=== PATIENT | female | born 1995 | race Caucasian/White ===

== ENCOUNTER 2020-06-07 16:44 | Emergency (ER) | payer OTHER ==
[2020-06-07] MEDS ORDERED: NORMAL SALINE 1000 ML 1,000 ML IV ONE (17:10)
--- NOTE | 2020-06-07 17:12 | ER Document Report ---
ED Medical Screen (RME) - General Chief Complaint: Flank Pain Stated Complaint: POSSIBLE LEFT SIDE PAIN Time Seen by Provider: 06/07/20 17:01 - HPI Notes: 06/07/20 17:10 24-year-old female 14 weeks presents emergency room with complaints of left flank pain, dysuria and kidney pain that started 6 days ago. She states she went to the ER at [facility], she was given Macrobid but decided not to take it because her mother told her it was not safe in . Patient reports her pain is becoming more progressive. She states she does have a history of pyelonephritis, denies any history of nephrolithiasis. Denies any vaginal bleeding. Her [employer] [place]. Denies any fevers or chills. Reports pain is 3 out of 5. I have greeted and performed a rapid initial assessment of this patient. A comprehensive ED assessment and evaluation of the patient, analysis of test results and completion of the medical decision making process will be conducted by additional ED providers. PHYSICAL EXAMINATION: GENERAL: Well-appearing, well-nourished and in no acute distress. CV: s1, s2 regular LUNGS: No respiratory distress abd: suprapubic tendenress on palpation. L cva tenderness on palpation. Musculoskeletal: Normal range of motion NEUROLOGICAL: Normal speech, normal gait. SKIN: Warm, Dry, normal turgor, no rashes or lesions noted. The patient was evaluated during a global COVID-19 pandemic and that diagnosis was suspected/considered upon their initial presentation. Their evaluation, treatment and testing was consistent with current guidelines for patients who present with complaints or symptoms and may be related to COVID-19. 06/07/20 17:11 - Related Data Allergies/Adverse Reactions: No Known Allergies Allergy (Verified 06/07/20 16:53) Physical Exam - Vital signs Vitals: Temp Pulse Resp BP Pulse Ox 98.3 F 103 H 20 117/66 97 06/06/20 16:47 06/06/20 16:47 06/06/20 16:47 06/06/20 16:47 06/06/20 16:47 Course - Vital Signs Vital signs: Temp Pulse Resp BP Pulse Ox 98.3 F 103 H 20 117/66 97 06/06/20 16:47 06/06/20 16:47 06/06/20 16:47 06/06/20 16:47 06/06/20 16:47
--- NOTE | 2020-06-07 18:07 | RADIOLOGY REPORT (SQ) ---
EXAM DESCRIPTION: U/S RETROPERITON (RENAL/AORTA) IMAGES COMPLETED DATE/TIME: 06/07/2020 5:57 pm REASON FOR STUDY: L flank pain x 6 days COMPARISON: None. TECHNIQUE: Dynamic and static grayscale images acquired of the kidneys and bladder and recorded on P ACS. Additional selected color Doppler and spectral images recorded. LIMITATIONS: None. FINDINGS: RIGHT KIDNEY: The right kidney measures 12.0 x 5.9 x 4.4 cm, normal size. Normal echogen icity. No solid or suspicious masses. No hydronephrosis. No calcifications. LEFT KIDNEY: The left kidney measures 10.7 x 5.4 x 4.7 cm, normal size. Normal echogenicity. No ariela d or suspicious masses. No hydronephrosis. No calcifications. BLADDER: The urinary bladder is decompressed. The patient voided prior to the examination. OTHER FINDINGS: A single living intrauterine . heart rate 147 beats per minute. IMPRESSION: 1. NORMAL RENAL ULTRASOUND. 2. The patient voided prior to the examination. 3. Single living intrauterine . TECHNICAL DOCUMENTATION: JOB ID: [id number] [employer]- All Rights Reserved Reading location - IP/workstation name: [email or web address]
[2020-06-07 18:12] LABS: ABSOLUTE LYMPHOCYTES (AUTO) 1.7 10^3/uL (0.5-4.7); ABSOLUTE MONOCYTES (AUTO) 0.7 10^3/uL (0.1-1.4); ABSOLUTE NEUT (AUTO) 6.5 10^3/uL (1.7-8.2); BASOPHILS % (AUTO) 0.2 % (0-2); EOSINOPHILS % (AUTO) 0.3 % (0-6); HEMATOCRIT 37.7 % (36.0-47.0); HEMOGLOBIN 12.9 g/dL (12.0-15.5); LYMPHOCYTES % (AUTO) 19.3 % (13-45); MEAN CORPUSCULAR HEMOGLOBIN 29.4 pg (27.0-33.4); MEAN CORPUSCULAR HGB CONC 34.3 g/dL (32.0-36.0); MEAN CORPUSCULAR VOLUME 86 fl (80-97); MONOCYTES % (AUTO) 7.3 % (3-13); PLATELET COUNT 403 10^3/uL (150-450); RED CELL DISTRIBUTION WIDTH 12.8 % (11.5-14.0); SEGMENTED NEUTROPHILS % (AUTO) 72.9 % (42-78); TOTAL CELLS COUNTED % (AUTO) 100 %
[2020-06-07 18:20] LABS: APPEARANCE,URINE SLIGHTLY-CLOUDY; BILIRUBIN,URINE NEGATIVE (NEGATIVE); CALCIUM OXALATE CRYSTALS,URINE MODERATE /HPF; COLOR,URINE YELLOW; GLUCOSE, URINE NEGATIVE (NEGATIVE); KETONES,URINE NEGATIVE (NEGATIVE); LEUKOCYTE ESTERASE,URINE NEGATIVE (NEGATIVE); NITRITE,URINE NEGATIVE (NEGATIVE); PROTEIN,URINE NEGATIVE (NEGATIVE); URINE SPECIFIC GRAVITY 1.031
[2020-06-07 18:27] LABS: ALBUMIN 4.1 g/dL (3.5-5.0); ALKALINE PHOSPHATASE 59 U/L (38-126); ANION GAP 7 (5-19); ASPARTATE AMINO TRANSFERASE 23 U/L (14-36); BILIRUBIN,DIRECT 0.2 mg/dL (0.0-0.4); BILIRUBIN,TOTAL 0.5 mg/dL (0.2-1.3); BLOOD UREA NITROGEN 5 mg/dL (7-20); CALCIUM 10.1 mg/dL (8.4-10.2); CARBON DIOXIDE 25 mmol/L (22-30); CHLORIDE 103 mmol/L (98-107); GLUCOSE 78 mg/dL (75-110); POTASSIUM 4.4 mmol/L (3.6-5.0); TOTAL PROTEIN 7.4 g/dL (6.3-8.2)
[2020-06-07] MEDS ORDERED: ONDANSETRON ODT 4 MG TAB (6 TAB/ER DISP) PO PRN (20:13)
--- NOTE | 2020-06-07 20:14 | ER Document Report ---
Entered by ZHOU MARCIAL SCRIBE 06/07/201944 Acting as scribe for:TATI TAYLOR DO ED GI/ - General Chief Complaint: Flank Pain Stated Complaint: POSSIBLE LEFT SIDE PAIN Time Seen by Provider: 06/07/20 17:01 Mode of Arrival: Ambulatory Information source: Patient Notes: This 24-year-old female patient presents to the emergency department today with complaints of left flank pain. Patient is approximately 14 weeks and was seen at [facility] the other day for a similar complaint. She states she was started on Macrobid for a possible UTI but she looked it up and it was "not recommended to take during " so she stopped taking it. She denies any nausea or vomiting. She reports that her left flank pain was relieved last night with a heating pad. - Related Data Allergies/Adverse Reactions: No Known Allergies Allergy (Verified 06/07/20 16:53) Home Medications: prenatals Past Medical History - General Information source: Patient - Social History Smoking Status: Former Smoker Cigarette use (# per day): No Frequency of alcohol use: None Drug Abuse: None Lives with: Family Family History: Reviewed & Not Pertinent Patient has homicidal ideation: No - Medical History Medical History: Negative Surgical Hx: Negative Review of Systems - Review of Systems Constitutional: No symptoms reported EENT: No symptoms reported Cardiovascular: No symptoms reported Respiratory: No symptoms reported Gastrointestinal: denies: Nausea, Vomiting Genitourinary: See HPI, Flank pain - left Female Genitourinary: See HPI, Musculoskeletal: No symptoms reported Skin: No symptoms reported Hematologic/Lymphatic: No symptoms reported Neurological/Psychological: No symptoms reported -: Yes All other systems reviewed and negative Physical Exam - Vital signs Vitals: Temp Pulse Resp BP Pulse Ox 98.3 F 103 H 20 117/66 97 06/06/20 16:47 06/06/20 16:47 06/06/20 16:47 06/06/20 16:47 06/06/20 16:47 - Notes Notes: Physical Exam: General: Alert, appears well. HEENT: Normocephalic. Atraumatic. PERRL. Extraocular movements intact. Oropharynx clear. Neck: Supple. Non-tender. Respiratory: No respiratory distress. Clear and equal breath sounds bilaterally. Cardiovascular: Regular rate and rhythm. Abdominal: Normal Inspection. Non-tender. No distension. Normal Bowel Sounds. Back: No gross abnormalities. Extremities: Moves all four extremities. Upper extremities: Normal inspection. Normal ROM. Lower extremities: Normal inspection. No edema. Normal ROM. Neurological: Normal cognition. AAOx4. Normal speech. Psychological: Normal affect. Normal Mood. Skin: Warm. Dry. Normal color. Course - Vital Signs Vital signs: Temp Pulse Resp BP Pulse Ox 98.1 F 91 15 122/68 100 06/07/20 20:28 06/07/20 20:28 06/07/20 20:28 06/07/20 20:28 06/07/20 20:28 - Laboratory Results Result Diagrams: 06/07/20 17:30 06/07/20 17:30 Laboratory Results Interpreted: 06/07/20 06/07/20 17:30 17:30 Sodium 135.4 L BUN 5 L Creatinine 0.45 L Beta HCG, Quant 25120.00 H Urine Urobilinogen 2.0 H Critical Laboratory Results Reviewed: No Critical Results - Radiology Results Critical Radiology Results Reviewed: No Critical Results Discharge - Discharge Clinical Impression: Left flank pain Condition: Stable Disposition: HOME, SELF-CARE Instructions: Abdominal Pain ([facility]), Antinausea Medication ([facility]) Additional Instructions: Rest, plenty of fluids. Take medicine as directed and keep the OB follow up. Please return here for persistent vomiting, pain, vaginal bleeding or other problems or concerns. Take tylenol as needed for pain. I personally performed the services described in the documentation, reviewed and edited the documentation which was dictated to the scribe in my presence, and it accurately records my words and actions.
[2020-06-07 20:32] VITALS: BP 122/68
== END 2020-06-07 20:28 | disposition home or self-care (01) ==
LOC: ER 16:44
DX: O26.91 Pregnancy related conditions, unspecified, first trimester (principal); R10.9 Unspecified abdominal pain; Z3A.14 14 weeks gestation of pregnancy
CPT/HCPCS: 99284; 96360; 36415; 87086; 84702; 85025; 80053; 81001; 76770; J7030